=== PATIENT | male | born 1980 | race African-American/Black ===

== ENCOUNTER 2024-08-25 19:37 | Emergency (ER) | payer SELFPAY ==
[2024-08-25] MEDS: Hydrocortisone Acetate 25 MG Supp RECTAL SCH (22:15)
== END 2024-08-25 23:30 | disposition home or self-care (01) ==
LOC: JD.ED 19:37
DX: K64.9 Unspecified hemorrhoids (principal); Z79.899 Other long term (current) drug therapy
CPT/HCPCS: 99283; A9270-GY